=== PATIENT | male | born 1960 | race Caucasian/White ===

== ENCOUNTER 2021-04-08 13:03 | Outpatient (CLI) | payer OTHER | END 2021-04-08 13:15 | disposition home or self-care (01) | LOC: RAD 13:03 | PROVIDERS: ATTEND Orthopaedic Surgery | DX: M25.512 Pain in left shoulder (principal); M54.5 Low back pain ==

== ENCOUNTER → 2021-08-19 08:16 | Outpatient (CLI) | payer OTHER | END | disposition home or self-care (01) | LOC: LAB 08:16 | PROVIDERS: ATTEND Orthopaedic Surgery | DX: D64.89 Other specified anemias (principal); E88.89 Other specified metabolic disorders; D68.8 Other specified coagulation defects; N39.0 Urinary tract infection, site not specified; Z22.322 Carrier or suspected carrier of Methicillin resistant Staphylococcus aureus; I10 Essential (primary) hypertension; Z76.89 Persons encountering health services in other specified circumstances; I49.8 Other specified cardiac arrhythmias; M75.122 Complete rotator cuff tear or rupture of left shoulder, not specified as traumatic ==

== ENCOUNTER 2021-10-14 10:41 | Outpatient (CLI) | payer OTHER | END 2021-10-14 10:47 | disposition home or self-care (01) | LOC: RAD 10:41 | PROVIDERS: ATTEND Orthopaedic Surgery | DX: M25.512 Pain in left shoulder (principal) ==

== ENCOUNTER 2021-10-17 08:56 | Outpatient (CLI) | payer OTHER | END 2021-10-17 09:00 | disposition home or self-care (01) | LOC: LAB 08:56 | PROVIDERS: ATTEND Orthopaedic Surgery | DX: M06.4 Inflammatory polyarthropathy (principal) ==